=== PATIENT | female | born 1985 | race Two or more races ===

== ENCOUNTER 2019-07-16 13:24 | Observation (INO) | payer OTHER ==
[~2019-07-16] VITALS: Ht 157.5 cm; Wt 73.6 kg
[2019-07-16 13:31] VITALS: BP 92/56
[2019-07-20] MEDS ORDERED: ERYT250C37 PO (04:31)
== END 2019-07-16 22:50 | disposition left against medical advice (07) ==
LOC: LDOP 13:24 → LDIP 16:47
PROVIDERS: ADMIT Obstetrics & Gynecology; ATTEND Obstetrics & Gynecology
DX: O36.8130 Decreased fetal movements, third trimester, not applicable or unspecified (principal); O99.89 Other specified diseases and conditions complicating pregnancy, childbirth and the puerperium; M93.20 Osteochondritis dissecans of unspecified site; Z86.14 Personal history of Methicillin resistant Staphylococcus aureus infection; Z3A.30 30 weeks gestation of pregnancy
CPT/HCPCS: 59025; 76819; 84112; 99201; G0378; G0463

== ENCOUNTER 2019-07-17 18:37 | Outpatient (CLI) | payer OTHER ==
[~2019-07-17] VITALS: Ht 157.5 cm; Wt 73.6 kg
[2019-07-17 18:49] VITALS: BP 110/67
[2019-07-17 21:18] LABS: MEAN CORPUSCULAR HEMOGLOBIN 31.4 pg (27.0-34.8); MEAN CORPUSCULAR VOLUME 92.6 fL (80-100); MEAN PLATELET VOLUME 8.4 fL (7.4-10.4); PLATELET COUNT 248 x10^3/uL (130-400); RED BLOOD COUNT 3.77 x10^6/uL (3.82-5.3); RED CELL DISTRIBUTION WIDTH 13.3 % (9.6-15.2)
[2019-07-17 22:01] LABS: BASOPHILS # (AUTO) 0.04 x10^3/uL (0-0.1); BASOPHILS % (AUTO) 0 % (0-1); EOSINOPHILS # (AUTO) 0.01 x10^3/uL (0-0.4); EOSINOPHILS % (AUTO) 0 % (1-7); LYMPHOCYTES # (AUTO) 2.19 x10^3/uL (1-3.4); LYMPHOCYTES % (AUTO) 14 % (22-44); MD SCAN; MONOCYTES # (AUTO) 1.12 x10^3/uL (0.2-0.8); MONOCYTES % (AUTO) 7 % (2-9); NEUTROPHILS # (AUTO) 12.18 x10^3/uL (1.8-6.8); NEUTROPHILS % (AUTO) 78 % (42-75)
== END 2019-07-17 21:40 | disposition home or self-care (01) ==
LOC: LDOP 18:37
PROVIDERS: ATTEND Obstetrics & Gynecology
DX: O26.813 Pregnancy related exhaustion and fatigue, third trimester (principal); R10.9 Unspecified abdominal pain; Z3A.30 30 weeks gestation of pregnancy
CPT/HCPCS: 36415; 59025; 76815; 85025; 99211; G0463

== ENCOUNTER 2019-07-19 09:21 | Inpatient (IN) | payer OTHER ==
[~2019-07-19] VITALS: Ht 157.5 cm; Wt 72.7 kg
[2019-07-19] MEDS ORDERED: PLEASE ENTER HEIGHT AND WEIGHT MC SCH (10:00)
[2019-07-19] MEDS ORDERED: LACTATED RINGERS 500 ML IVBOLUS ONE (10:00)
[2019-07-19 10:16] LABS: MEAN CORPUSCULAR HEMOGLOBIN 31.7 pg (27.0-34.8); MEAN CORPUSCULAR HGB CONC 34.4 g/dL (32.4-35.8); MEAN CORPUSCULAR VOLUME 92.1 fL (80-100); MEAN PLATELET VOLUME 8.2 fL (7.4-10.4); PLATELET COUNT 259 x10^3/uL (130-400); RED BLOOD COUNT 4.01 x10^6/uL (3.82-5.3); RED CELL DISTRIBUTION WIDTH 13.3 % (9.6-15.2)
[2019-07-19 10:55] LABS: BASOPHILS # (AUTO) 0.03 x10^3/uL (0-0.1); BASOPHILS % (AUTO) 0 % (0-1); EOSINOPHILS # (AUTO) 0.04 x10^3/uL (0-0.4); EOSINOPHILS % (AUTO) 0 % (1-7); LYMPHOCYTES # (AUTO) 2.29 x10^3/uL (1-3.4); LYMPHOCYTES % (AUTO) 16 % (22-44); MD SCAN; MONOCYTES # (AUTO) 1.04 x10^3/uL (0.2-0.8); MONOCYTES % (AUTO) 7 % (2-9); NEUTROPHILS % (AUTO) 77 % (42-75)
[2019-07-19] MEDS ORDERED: LACTATED RINGERS 1,000 ML IV SCH (18:11)
[2019-07-19] MEDS ORDERED: DIPHENHYDRAMINE 25 MG CAPSULE PO PRN (18:30)
[2019-07-19] MEDS ORDERED: ONDANSETRON 2MG/ML, 2ML IVPush PRN (18:30)
[2019-07-19] MEDS ORDERED: FENTANYL PF 100 MCG/2ML IV PRN (18:30)
[2019-07-19] MEDS ORDERED: SODIUM CITRATE/CITRIC ACID 30 ML UDC PO PRN (18:30)
[2019-07-19] MEDS ORDERED: METOCLOPRAMIDE 5 MG/ML, 2ML IVPush PRN (18:30)
[2019-07-19] MEDS ORDERED: FENTANYL PF 100 MCG/2ML IVPush PRN (18:30)
[2019-07-19] MEDS ORDERED: ALUMINUM/MAG/SIMETHICONE 30 ML UDC PO PRN (18:30)
[2019-07-19] MEDS ORDERED: IBUPROFEN 600 MG TABLET PO PRN (18:30)
[2019-07-19] MEDS ORDERED: TERBUTALINE 1 MG/ML, 1ML SQ PRN (18:30)
[2019-07-19] MEDS ORDERED: MISOPROSTOL 200 MCG TABLET PR PRN (18:30)
[2019-07-19] MEDS ORDERED: TERBUTALINE 1 MG/ML, 1ML IVPush PRN ×2 (18:30)
[2019-07-19 19:47] VITALS: BP 101/55
[2019-07-19 20:00] VITALS: BP 101/55
[2019-07-19] MEDS ORDERED: AMOXICILLIN 250 MG CAPSULE PO SCH ×2 (21:00)
[2019-07-19] MEDS ORDERED: ERYTHROMYCIN BASE 250 MG TABLET PO SCH ×2 (21:00)
[2019-07-20] MEDS ORDERED: AMOX250C17 PO (04:31)
[2019-07-20] MEDS ORDERED: PREN1TAB60 PO (04:31)
[2019-07-20] MEDS ORDERED: ERYT250C8 PO (04:31)
[2019-07-20] MEDS ORDERED: DIPHENHYDRAMINE 25 MG CAPSULE ONE (07:30)
[2019-07-20 07:43] VITALS: BP 102/68
[2019-07-20] MEDS ORDERED: ERYTHROMYCIN BASE 250 MG TABLET PO SCH (08:00)
[2019-07-20] MEDS ORDERED: AMOXICILLIN 250 MG CAPSULE PO SCH (08:00)
[2019-07-20] MEDS ORDERED: SODIUM CHLORIDE FLUSH 3ML SYRINGE IVF SCH (09:00)
== END 2019-07-20 08:16 | disposition home or self-care (01) | DRG 833 ==
LOC: LDOP 09:21 → LDIP 18:11
PROVIDERS: ADMIT Obstetrics & Gynecology; ATTEND Obstetrics & Gynecology
DX: O42.013 Preterm premature rupture of membranes, onset of labor within 24 hours of rupture, third trimester (principal); F41.9 Anxiety disorder, unspecified; O99.344 Other mental disorders complicating childbirth; F32.9 Major depressive disorder, single episode, unspecified; Z88.8 Allergy status to other drugs, medicaments and biological substances; Z91.040 Latex allergy status; Z81.8 Family history of other mental and behavioral disorders; Z88.5 Allergy status to narcotic agent; Z82.49 Family history of ischemic heart disease and other diseases of the circulatory system; Z3A.30 30 weeks gestation of pregnancy; Z83.3 Family history of diabetes mellitus; Z85.43 Personal history of malignant neoplasm of ovary; Z86.14 Personal history of Methicillin resistant Staphylococcus aureus infection; Z88.9 Allergy status to unspecified drugs, medicaments and biological substances
CPT/HCPCS: 36415; 85025; 85460; G0378; J7120; Q0163

== ENCOUNTER 2019-07-23 21:22 | Inpatient (IN) | payer OTHER ==
[~2019-07-23] VITALS: Ht 157.5 cm; Wt 72.9 kg
[~2019-07-23 21:22] MED LIST: AMOX250C17 PO; ERYT250C8 PO; PREN1TAB60 PO
[2019-07-23 22:00] VITALS: BP 100/68
[2019-07-23 22:21] LABS: BASOPHILS # (AUTO) 0.04 x10^3/uL (0-0.1); BASOPHILS % (AUTO) 0 % (0-1); EOSINOPHILS # (AUTO) 0.14 x10^3/uL (0-0.4); EOSINOPHILS % (AUTO) 1 % (1-7); LYMPHOCYTES # (AUTO) 2.79 x10^3/uL (1-3.4); LYMPHOCYTES % (AUTO) 21 % (22-44); MD NO; MEAN CORPUSCULAR HEMOGLOBIN 31.5 pg (27.0-34.8); MEAN CORPUSCULAR HGB CONC 34.2 g/dL (32.4-35.8); MEAN CORPUSCULAR VOLUME 92.2 fL (80-100); MONOCYTES % (AUTO) 6 % (2-9); NEUTROPHILS # (AUTO) 9.54 x10^3/uL (1.8-6.8); NEUTROPHILS % (AUTO) 72 % (42-75); PLATELET COUNT 278 x10^3/uL (130-400); RED BLOOD COUNT 4.16 x10^6/uL (3.82-5.3); RED CELL DISTRIBUTION WIDTH 13.2 % (9.6-15.2)
[2019-07-23 22:22] LABS: MICROSCOPIC INDICATED
[2019-07-23 22:31] LABS: INTERNATIONAL NORMALIZED RATIO 0.86 (0.93-1.1); PROTHROMBIN TIME 9.1 Seconds (9.6-11.5)
[2019-07-24] MEDS: LACTATED RINGERS 1,000 ML IV SCH ×3 (00:05→14:02)
[2019-07-24] MEDS ORDERED: MAGNESIUM SULF. PMX 20GM/500ML 500 ML IV SCH (04:06)
[2019-07-24] MEDS ORDERED: MAGNESIUM SULFATE PMX 2GM/50ML 50 ML ONE (04:15)
[2019-07-24] MEDS ORDERED: MAGNESIUM SULFATE PMX 4GM/100M 100 ML ONE (04:15)
[2019-07-24] MEDS ORDERED: MAGNESIUM SULFATE PMX 2GM/50ML 50 ML IVPB ONE (04:30)
[2019-07-24] MEDS ORDERED: MAGNESIUM SULFATE PMX 4GM/100M 100 ML IVPB ONE (04:30)
[2019-07-24] MEDS ORDERED: MAGNESIUM SULF. PMX 20GM/500ML 500 ML IV ONE ×2 (04:59→12:57)
[2019-07-24 05:55] LABS: MICROSCOPIC INDICATED
[2019-07-24 07:28] VITALS: BP 107/69
[2019-07-24] MEDS ORDERED: ONDANSETRON 2MG/ML, 2ML ONE (20:22)
[2019-07-24] MEDS ORDERED: ONDANSETRON 2MG/ML, 2ML IVPush PRN (20:30)
[2019-07-24] MEDS ORDERED: CALCIUM CARBONATE 500 MG TAB.CHEW PO PRN (20:30)
[2019-07-24] MEDS: MAGNESIUM SULF. PMX 20GM/500ML 500 ML IV SCH (20:45)
[2019-07-24] MEDS: DOCUSATE 100 MG CAPSULE PO SCH (20:47)
[2019-07-24] MEDS ORDERED: DOCUSATE 100 MG CAPSULE ONE (20:47)
[2019-07-25] MEDS ORDERED: MAGNESIUM SULF. PMX 20GM/500ML 500 ML IV ONE (01:34)
[2019-07-25] MEDS: MAGNESIUM SULF. PMX 20GM/500ML 500 ML IV SCH (01:38)
[2019-07-25] MEDS: LACTATED RINGERS 1,000 ML IV SCH (03:07)
[2019-07-25] MEDS ORDERED: MAGNESIUM SULF. PMX 20GM/500ML 500 ML IV SCH (04:06)
[2019-07-25] MEDS ORDERED: OXYTOCIN 30U/ 0.9% NaCL 500ML 500 ML IV ONE (06:17)
[2019-07-25] MEDS ORDERED: LIDOCAINE 1%, 20ML ONE (06:25)
[2019-07-25] MEDS ORDERED: OXYTOCIN 30U/ 0.9% NaCL 500ML 500 ML ONE ×2 (06:25→09:16)
[2019-07-25] MEDS ORDERED: MISOPROSTOL 200 MCG TABLET ONE (06:25)
[2019-07-25] MEDS ORDERED: NEWBORN KIT ONE (06:25)
[2019-07-25] MEDS ORDERED: TERBUTALINE 1 MG/ML, 1ML IVPush PRN (06:30)
[2019-07-25] MEDS ORDERED: FENTANYL PF 100 MCG/2ML IVPush PRN (06:30)
[2019-07-25] MEDS ORDERED: FENTANYL PF 100 MCG/2ML IV PRN (06:30)
[2019-07-25] MEDS ORDERED: TERBUTALINE 1 MG/ML, 1ML SQ PRN (06:30)
[2019-07-25 07:00] LABS: MEAN CORPUSCULAR HEMOGLOBIN 31.3 pg (27.0-34.8); MEAN CORPUSCULAR HGB CONC 33.7 g/dL (32.4-35.8); MEAN CORPUSCULAR VOLUME 93.1 fL (80-100); MEAN PLATELET VOLUME 7.9 fL (7.4-10.4); PLATELET COUNT 319 x10^3/uL (130-400); RED BLOOD COUNT 4.32 x10^6/uL (3.82-5.3); RED CELL DISTRIBUTION WIDTH 13.5 % (9.6-15.2)
[2019-07-25 07:25] VITALS: BP 117/70
[2019-07-25 07:54] LABS: BASOPHILS # (AUTO) 0.05 x10^3/uL (0-0.1); BASOPHILS % (AUTO) 0 % (0-1); EOSINOPHILS # (AUTO) 0.03 x10^3/uL (0-0.4); EOSINOPHILS % (AUTO) 0 % (1-7); LYMPHOCYTES # (AUTO) 2.34 x10^3/uL (1-3.4); LYMPHOCYTES % (AUTO) 16 % (22-44); MD SCAN; MONOCYTES % (AUTO) 4 % (2-9); NEUTROPHILS # (AUTO) 11.47 x10^3/uL (1.8-6.8); NEUTROPHILS % (AUTO) 79 % (42-75)
[2019-07-25] MEDS ORDERED: OXYTOCIN 30U/ 0.9% NaCL 500ML 500 ML IV SCH (08:52)
[2019-07-25] MEDS ORDERED: MISOPROSTOL 200 MCG TABLET PR PRN (09:00)
[2019-07-25] MEDS: PRENATAL VIT/IRON/FA 1 EACH TABLET PO SCH ×2 (09:00)
[2019-07-25] MEDS ORDERED: RHOGAM FROM BLOOD BANK 1 NOTE EA IM/IV ONE (09:00)
[2019-07-25] MEDS: DOCUSATE 100 MG CAPSULE PO SCH ×2 (09:00→20:31)
[2019-07-25] MEDS ORDERED: MEASLES,MUMPS&RUBELLA VACC/PF 0.5 ML SQ-VACC PRN (09:00)
[2019-07-25] MEDS ORDERED: MAGNESIUM HYDROXIDE 8%, 30ML UDC PO PRN (09:00)
[2019-07-25] MEDS ORDERED: IBUPROFEN 600 MG TABLET ONE (10:07)
[2019-07-25] MEDS: IBUPROFEN 600 MG TABLET PO PRN ×2 (10:08→20:31)
[2019-07-25] MEDS: DOCUSATE 100 MG CAPSULE PO PRN (10:55)
[2019-07-25 12:20] VITALS: BP 102/63
[2019-07-25 17:20] VITALS: BP 113/77
[2019-07-25 18:30] LABS: BASOPHILS # (AUTO) 0.05 x10^3/uL (0-0.1); BASOPHILS % (AUTO) 0 % (0-1); EOSINOPHILS # (AUTO) 0.01 x10^3/uL (0-0.4); EOSINOPHILS % (AUTO) 0 % (1-7); LYMPHOCYTES % (AUTO) 18 % (22-44); MD NO; MEAN CORPUSCULAR HEMOGLOBIN 31.3 pg (27.0-34.8); MEAN CORPUSCULAR HGB CONC 33.8 g/dL (32.4-35.8); MEAN CORPUSCULAR VOLUME 92.8 fL (80-100); MEAN PLATELET VOLUME 7.8 fL (7.4-10.4); MONOCYTES # (AUTO) 1.11 x10^3/uL (0.2-0.8); MONOCYTES % (AUTO) 7 % (2-9); NEUTROPHILS # (AUTO) 12.09 x10^3/uL (1.8-6.8); NEUTROPHILS % (AUTO) 75 % (42-75); PLATELET COUNT 258 x10^3/uL (130-400); RED CELL DISTRIBUTION WIDTH 13.8 % (9.6-15.2)
[2019-07-25 20:00] VITALS: BP 107/73
[2019-07-26] VITALS: BP 105/67
[2019-07-26 04:00] VITALS: BP 108/64
[2019-07-26] MEDS ORDERED: MAGNESIUM SULF. PMX 20GM/500ML 500 ML IV SCH (04:06)
[2019-07-26 07:51] VITALS: BP 104/66
[2019-07-26] MEDS: PRENATAL VIT/IRON/FA 1 EACH TABLET PO SCH ×2 (08:01→08:02)
[2019-07-26] MEDS: DOCUSATE 100 MG CAPSULE PO SCH (08:01)
[2019-07-26] MEDS: IBUPROFEN 600 MG TABLET PO PRN (08:01)
[2019-07-26] MEDS: DOCUSATE 100 MG CAPSULE PO PRN (08:02)
[2019-07-26] MEDS ORDERED: IBUP-1222 PO (11:08)
[2019-07-26] MEDS ORDERED: SENN-92 PO (11:09)
== END 2019-07-26 13:10 | disposition home or self-care (01) | DRG 805 ==
LOC: LDOP 21:22 → LDIP 23:15 → OBSVTOIN 23:15 → LDIP 07-25 06:11 → 2NW 07-25 10:29
PROVIDERS: ADMIT Obstetrics & Gynecology; ATTEND Obstetrics & Gynecology
PROC: 10E0XZZ Delivery of Products of Conception, External Approach (ICD-10-PCS; principal; 2019-07-24)
PROC: 0KQM0ZZ Repair Perineum Muscle, Open Approach (ICD-10-PCS; 2019-07-24)
PROC: 0T9B30Z Drainage of Bladder with Drainage Device, Percutaneous Approach (ICD-10-PCS; 2019-07-24)
DX: O60.14X0 Preterm labor third trimester with preterm delivery third trimester, not applicable or unspecified (principal); O45.93 Premature separation of placenta, unspecified, third trimester; Z37.0 Single live birth; O41.03X0 Oligohydramnios, third trimester, not applicable or unspecified; O42.913 Preterm premature rupture of membranes, unspecified as to length of time between rupture and onset of labor, third trimester; O70.1 Second degree perineal laceration during delivery; Z3A.31 31 weeks gestation of pregnancy; Z85.43 Personal history of malignant neoplasm of ovary; Z88.8 Allergy status to other drugs, medicaments and biological substances; Z88.5 Allergy status to narcotic agent; Z88.1 Allergy status to other antibiotic agents
CPT/HCPCS: 36415; 76819; 81001; 83735; 85025; 85384; 85460; 85610; 85730; 86592; 86850; 86900; 86923; 87070; 87075; 87077; 87081; 87086; 87205; G0378; J2405; J2590; J3475; J7120